=== PATIENT | male | born 2000 | race Caucasian/White ===

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

== ENCOUNTER 2024-03-08 03:29 | Emergency (ER) | payer SELFPAY ==
--- NOTE | ~2024-03-08 | CT_ITS ---
EXAMINATION: CT ABDOMEN AND PELVIS WITHOUT CONTRAST CLINICAL INFORMATION: Right flank pain. COMPARISON: None available. TECHNIQUE: Multidetector volumetric imaging was performed from the superior aspect of the liver through the pubic symphysis. Sagittal and coronal reformatted images were obtained on the technologist's workstation. This CT examination was performed using dose optimization techniques as appropriate, variously including the following: *Automated exposure control *Adjustment of mA and/or kV according to patient size (this includes techniques or standardized protocols for targeted exams where dose is matched to indication/reason for exam; i.e. extremities or head) *Use of iterative reconstruction technique DLP: 221 mGy-cm FINDINGS: LUNG BASES: Pleural parenchymal scarring is present at the left lung base anterolaterally. Lung bases otherwise clear. LIVER, GALLBLADDER, AND BILIARY TREE: The liver is normal in size, shape, and attenuation. No focal hepatic lesion or biliary ductal dilatation is present. The gallbladder is unremarkable with no evidence of radiopaque gallstones, gallbladder wall thickening, or obvious pericholecystic inflammatory changes. PANCREAS: Unremarkable. SPLEEN: Unremarkable. ADRENAL GLANDS: Unremarkable. KIDNEYS AND URETERS: Multiple bilateral renal calculi are identified, numbering 4 on the right and 2 on the left. The largest of these is a a 4 mm calculus within a lower pole calyx of the left kidney. Kidneys normal in size and contour. Mild right hydroureteronephrosis is produced by a 3.5 cm calculus at the right ureteropelvic junction. No additional ureteral calculi are identified. BLADDER: Unremarkable. GASTROINTESTINAL TRACT: Stomach, small bowel, and colon are normal in caliber. No bowel wall thickening or surrounding inflammatory changes. Appendix is normal. No intraperitoneal free fluid or free air. ABDOMINAL WALL: No significant hernia is appreciated. LYMPH NODES: Normal. VASCULAR: Unremarkable. PELVIC VISCERA: Unremarkable. OSSEOUS STRUCTURES: Unremarkable. CT/CT abdomen pelvis wo IV con IMPRESSION: 1. A 3.5 mm calculus at the right ureteropelvic junction produces mild right hydroureteronephrosis. 2. Bilateral nephrolithiasis. Fleischner guidelines were followed.
[2024-03-08 03:33] VITALS: BP 135/82; PULSE 75; RESP 20; TEMP 36.6; O2SAT 100; BMI 19.0
[2024-03-08 03:46] LABS: MANUAL DIFF FLAG NO
[2024-03-08 03:48] LABS: Basophils Absolute Auto 0.1 X10*3/uL (0.0-0.2); Basophils Percent Auto 0.6 % (0-2); Eosinophils Absolute Auto 0.1 X10*3/uL (0.0-0.4); Eosinophils Percent Auto 1.6 % (0-4); Hematocrit 45.2 % (42.0-52.0); Hemoglobin 15.3 g/dl (14.0-18.0); Imm Gran Abs Auto 0.02 X10*3/uL (0.00-0.03); Imm Gran Pct Auto 0.2 % (0.0-0.4); Lymphocytes Absolute Auto 4.3 X10*3/uL (1.2-4.9); Lymphocytes Percent Auto 51.9 % (20-40); Mean Corpuscular HGB Conc 33.8 g/dl (31.0-36.0); Mean Corpuscular Hemoglobin 28.5 pg (27.0-33.0); Mean Corpuscular Volume 84.2 fL (80.0-98.0); Mean Platelet Volume 9.5 fL (9.4-12.4); Monocytes Absolute Auto 0.5 X10*3/uL (0.1-1.2); Monocytes Percent Auto 5.4 % (2-11); Neutrophils Absolute Auto 3.3 x10*3/uL (2.0-8.3); Neutrophils Percent Auto 40.3 % (45-73); Platelet Count 274 X10*3/uL (160-400); Red Blood Count 5.37 X10*6/uL (4.60-5.80); Red Cell Distribution Width 12.8 % (11.0-16.0); White Blood Count 8.3 X10*3/uL (4.8-10.8)
[2024-03-08 04:01] LABS: Alanine Aminotransferase 21 U/L (0-40); Albumin Level 4.6 g/dL (3.5-5.0); Alkaline Phosphatase 99 U/L (39-117); Anion Gap 16 (12-20); Aspartate Amino Transferase 24 U/L (5-37); Bilirubin Direct 0.1 mg/dL (0.0-0.5); Bilirubin Total 0.5 mg/dL (0.0-1.0); Blood Urea Nitrogen 14 mg/dL (9-16); Carbon Dioxide 23 mmol/L (22-29); Chloride 108 mmol/L (96-108); Creatinine Clr Calc Pharmacy 96.3; Estimated Glomerular Filt Rate > 60; Glucose Random 116 mg/dL (60-115); Lipase 33 U/L (8-78); Potassium 3.7 mmol/L (3.3-5.1); Sodium 143 mmol/L (135-145); Total Protein 7.6 g/dL (6.5-8.0)
[2024-03-08 04:02] VITALS: BP 128/72; PULSE 61; RESP 15; TEMP 36.8; O2SAT 100
[2024-03-08 04:23] LABS: Appearance Urine Turbid; Color Urine Yellow; Glucose Urine UA Negative (Negative); Leukocyte Esterase Urine Trace (Negative); Nitrite Urine Negative (Negative); PH 8.5 (5.0-9.0); Specific Gravity - Urine 1.025 (1.005-1.025); UMIC TRIGGER UACC YES; Urine Blood Large (3+) (Negative); Urine Ketones Negative (Negative); Urine Protein 30 (1+) mg/dL (Neg-Trace)
[2024-03-08 04:43] LABS: Bacteria Urine None Seen (None Seen); Hyaline Casts Urine 0-2 /LPF (0-2); RBC Urine >20 /HPF (0-2); Squamous Epithelial Cell Urine 0-2 /HPF (0-2); WBC Urine 0-5 /HPF (0-5)
--- NOTE | 2024-03-08 04:54 | ED.ABDPAIN ---
HPI - Abdominal Pain General Chief Complaint: Abdominal Pain Stated Complaint: Abd Pain Time Seen by Provider: 03/08/24 04:53 Source: patient Mode of arrival: ambulatory Limitations: no limitations History of Present Illness ED Provider: george HPI narrative: Patient history of kidney stone in the past never requiring any procedure comes here for acute onset of sharp pain in the right flank and right upper abdomen woke him up at 03:00 no blood in the urine no dysuria no frequency slightly nauseated vomited 2 times Related Data Previous Rx's ?Medication ?Instructions ?Recorded ibuprofen 600 mg tablet 600 mg PO Q6H PRN fever or pain 03/08/24 #30 tabs oxycodone 5 mg tablet 5 mg PO Q6H PRN pain #20 tabs 03/08/24 tamsulosin 0.4 mg capsule (Flomax) 0.4 mg PO BEDTIME #7 caps 03/08/24 Allergies Allergy/AdvReac Type Severity Reaction Status Date / Time No Known Allergies Allergy Verified 03/08/24 03:35 Review of Systems Review of Systems Yes all other systems are reviewed and are negative [facility] Social History Social History Alcohol intake: never Smoked in Last 30 Days: No Use of substances other than those prescribed or required for medical reasons: Yes Substance Use Type: Marijuana Advance Directives: No Advance Directives Information Provided: Yes Do you have a plan to hurt others: No Plan Physical Exam ED Vital Signs: Vital Signs - 24 hr 03/08/24 03:33 03/08/24 04:02 03/08/24 06:35 Temperature 97.9 F 98.3 F 98 F Pulse Rate 75 61 60 Respiratory Rate 20 15 15 Blood Pressure 135/82 128/72 110/60 Pulse Oximetry 100 100 98 Oxygen Delivery Method Room Air Room Air Room Air 03/08/24 06:40 Temperature 98 F Pulse Rate 60 Respiratory Rate 15 Blood Pressure 110/60 Pulse Oximetry 98 Oxygen Delivery Method Room Air BMI result Body Mass Index 19.0 Appearance: Alert. Oriented X3. No acute distress. Eyes: PERRLA, No Nystagmus ENT: Pharynx normal. Oral Mucosa moist Neck: Normal inspection. Neck supple. CVS: Normal heart rate and rhythm. Pulses normal. Respiratory: No respiratory distress. Equal air entry bilateral, no wheezing/rales/rhonchi Abdomen: Soft and right mid abdomen tenderness. Bowel sounds are present, no mass palpable, right CVA tenderness Skin: Skin warm and dry. Normal skin color. Normal skin turgor. Extremities: No lower extremity edema. No calf tenderness Neuro: Oriented X 3. Medical Decision Making Medical Decision Making [facility] Narrative: Patient has acute onset of right flank pain CT scan showed 3.5 mm UVJ stone with mild hydro patient felt better after IV hydration pain medication Differential Diagnosis Differential Diagnoses: The differential diagnosis associated with the presentation includes Kidney stone/diverticulitis/UTI Lab Data [facility] Lab Attestation statement: I reviewed the patient's lab results. 03/08/24 03:43 03/08/24 03:43 Labs: Lab Results 03/08/24 03/08/24 Range/Units 03:43 04:17 WBC 8.3 (4.8-10.8) X10*3/uL RBC 5.37 (4.60-5.80) X10*6/uL Hgb 15.3 (14.0-18.0) g/dl Hct 45.2 (42.0-52.0) % MCV 84.2 (80.0-98.0) fL MCH 28.5 (27.0-33.0) pg MCHC 33.8 (31.0-36.0) g/dl RDW 12.8 (11.0-16.0) % Plt Count 274 (160-400) X10*3/uL MPV 9.5 (9.4-12.4) fL Immature Gran % (Auto) 0.2 (0.0-0.4) % Neut % (Auto) 40.3 L (45-73) % Lymph % (Auto) 51.9 H (20-40) % [place] % (Auto) 5.4 (2-11) % Eos % (Auto) 1.6 (0-4) % Baso % (Auto) 0.6 (0-2) % Lymph # (Auto) 4.3 (1.2-4.9) X10*3/uL [place] # (Auto) 0.5 (0.1-1.2) X10*3/uL Eos # (Auto) 0.1 (0.0-0.4) X10*3/uL Baso # (Auto) 0.1 (0.0-0.2) X10*3/uL Abs Immat Gran (auto) 0.02 (0.00-0.03) X10*3/uL Absolute Neuts (auto) 3.3 (2.0-8.3) x10*3/uL Absolute Nucleated RBC 0.000 (0.0-0.012) X10*3/uL Nucleated RBC % (auto) 0.0 (0.0-0.2) /100WBC Sodium 143 (135-145) mmol/L Potassium 3.7 (3.3-5.1) mmol/L Chloride 108 (96-108) mmol/L Carbon Dioxide 23 (22-29) mmol/L Anion Gap 16 (12-20) BUN 14 (9-16) mg/dL Creatinine 1.08 (0.5-1.4) mg/dL Estim Creat Clear Calc 96.3 Estimated GFR > 60 Random Glucose 116 H (60-115) mg/dL Calcium 10.0 (8.4-10.2) mg/dL Total Bilirubin 0.5 (0.0-1.0) mg/dL Direct Bilirubin 0.1 (0.0-0.5) mg/dL AST 24 (5-37) U/L ALT 21 (0-40) U/L Alkaline Phosphatase 99 (39-117) U/L Total Protein 7.6 (6.5-8.0) g/dL Albumin 4.6 (3.5-5.0) g/dL Lipase 33 (8-78) U/L Urine Color Yellow Urine Appearance Turbid Urine pH 8.5 (5.0-9.0) Ur Specific [place] 1.025 (1.005-1.025) Urine Protein 30 (1+) H (Neg-Trace) mg/dL Urine Glucose (UA) Negative (Negative) mg/dL Urine Ketones Negative (Negative) mg/dL Urine Blood Large (3+) H (Negative) Urine Nitrite Negative (Negative) Ur Leukocyte Esterase Trace H (Negative) Urine RBC >20 H (0-2) /HPF Urine WBC 0-5 (0-5) /HPF Ur Squamous Epith Cells 0-2 (0-2) /HPF Urine Bacteria None Seen (None Seen) Hyaline Casts 0-2 (0-2) /LPF Independent Interpretation I performed an independent interpretation of an: CT Scan Radiology Impression Discussion of test interpretation with radiology: I have reviewed the radiologist's reading. Radiologist Impression: RDER #: [id number] CT/CT abdomen pelvis wo IV con IMPRESSION: 1. A 3.5 mm calculus at the right ureteropelvic junction produces mild right hydroureteronephrosis. 2. Bilateral nephrolithiasis. Medications Administered Discontinued Medications Generic Name Dose Route Start Last Admin Trade Name Freq PRN Reason Stop Dose Admin Sodium Chloride 1,000 mls @ 999 mls/hr 03/08/24 05:01 03/08/24 06:40 Ns IV 03/08/24 06:01 Infused .Q1H1M ONE Infusion Ketorolac Tromethamine 30 mg 03/08/24 05:01 03/08/24 05:23 Ketorolac Tromethamine 30 Mg/Ml Vial IVPUSH 03/08/24 05:02 30 mg ONCE ONE Administration Oxycodone HCl 10 mg 03/08/24 05:54 03/08/24 06:20 Oxycodone Hcl Immed Release 5 Mg Tablet PO 03/08/24 05:55 10 mg ONCE ONE Administration Tamsulosin HCl 0.4 mg 03/08/24 05:53 03/08/24 06:20 Tamsulosin Hcl 0.4 Mg Capsule PO 03/08/24 05:54 0.4 mg ONCE ONE Administration Discharge Plan Discharge Clinical Impression: Kidney stone on right side Patient Disposition: Home, Self-Care Instructions: Kidney Stones (ED), Low Oxalate Diet (ED) Additional Instructions: Drink plenty of fluids Pain medication as prescribed Take Flomax daily till you pass the stone Follow-up with urologist Prescriptions: New oxycodone 5 mg tablet 5 mg PO Q6H PRN (Reason: pain) Qty: 20 0RF Rx Instructions: Partial Fill upon patient request. tamsulosin [Flomax] 0.4 mg capsule 0.4 mg PO BEDTIME Qty: 7 0RF ibuprofen 600 mg tablet 600 mg PO Q6H PRN (Reason: fever or pain) Qty: 30 0RF Referrals: Victoriano Zimmerman MD [Physician] - 2 weeks Stand Alone Forms: Work/School Release Interventions: ED Discharge Assessment Last Done: 03/08/24 06:40 Discharge Date/Time: 03/08/24 06:50 Print Language: Swiss
[2024-03-08] MEDS: Ketorolac Tromethamine 30 MG/ML VIAL IVPUSH (05:23)
[2024-03-08] MEDS: 0.9 % Sodium Chloride 1,000 ML 999 ML IV (05:24)
[2024-03-08] MEDS: Tamsulosin HCL 0.4 MG CAPSULE PO (06:20)
[2024-03-08] MEDS: oxyCODONE HCl Immed Release 5 MG TABLET 10 MG PO (06:20)
[2024-03-08 06:35] VITALS: BP 110/60; PULSE 60; RESP 15; TEMP 36.6; O2SAT 98
[2024-03-08 06:40] VITALS: BP 110/60; PULSE 60; RESP 15; TEMP 36.6; O2SAT 98
== END 2024-03-08 06:50 | disposition home or self-care (01) ==
PROVIDERS: Emergency Provider Internal Medicine
DX: N13.2 Hydronephrosis with renal and ureteral calculous obstruction (principal)
CPT/HCPCS: 36415; 74176; 80048; 80076; 81001; 83690; 85025; 96361; 96374; 99284; J1885